=== PATIENT | female | born 1935 | race Caucasian/White ===

== ENCOUNTER 2023-09-24 08:36 | Observation (INO) | payer OTHER ==
[2023-09-24] MEDS ORDERED: KETOROLAC TROMETHAMINE 15 MG/ML VIAL IM ONE (11:00)
[2023-09-24] MEDS ORDERED: ACETAMINOPHEN 325 MG TABLET (FP) ONE (11:20)
[2023-09-24] MEDS ORDERED: KETOROLAC TROMETHAMINE 30 MG/1 ML VIAL ONE (11:20)
[2023-09-24] MEDS: ACETAMINOPHEN 500 MG TABLET (FP) PO ONE (11:27)
[2023-09-24] MEDS: KETOROLAC TROMETHAMINE 30 MG/1 ML VIAL IM ONE (11:28)
[2023-09-24] MEDS ORDERED: oxyCODONE HCL 10 MG SUSTAINED ACTING TABLET ONE (14:11)
[2023-09-24] MEDS ORDERED: oxyCODONE HCL 5 MG TABLET ONE (14:14)
[2023-09-24] MEDS: oxyCODONE HCL 5 MG TABLET PO ONE (14:17)
[2023-09-24 17:34] LABS: HEMATOCRIT 42.5 % (32.4-45.2); HEMOGLOBIN 13.3 GM/dL (10.7-15.3); MCH 26.8 pg (25.7-33.7); MCHC 31.4 g/dl (32.0-36.0); MEAN CELL VOLUME 85.4 fl (80-96); MEAN PLT VOLUME 7.4 fl (7.5-11.1); PLATELET COUNT 287 10^3/uL (134-434); RBC 4.98 M/mm3 (3.60-5.2); RDW 14.6 % (11.6-15.6); WHITE BLOOD COUNT 11.1 K/mm3 (4.0-10.0)
[2023-09-24 18:00] LABS: CHLORIDE 105 mmol/L (98-107); POTASSIUM 3.9 mmol/L (3.5-5.1); SODIUM 141 mmol/L (136-145)
[2023-09-24 18:01] LABS: CALCIUM 9.4 mg/dL (8.5-10.1)
[2023-09-24 18:03] LABS: ALBUMIN 3.5 g/dl (3.4-5.0); ANION GAP 9 mmol/L (4-13); BLOOD UREA NITROGEN 17.1 mg/dL (7-18); CO2 28 mmol/L (21-32); GLUCOSE,RANDOM 107 mg/dL (74-106)
[2023-09-24 18:06] LABS: CREATININE 0.7 mg/dL (0.55-1.3); SGOT/AST 26 U/L (15-37); SGPT/ALT 30 U/L (13-61)
[2023-09-24 18:07] LABS: BILIRUBIN,TOTAL 0.5 mg/dL (0.2-1); TOT PROT 7.5 g/dl (6.4-8.2)
[2023-09-24 18:09] LABS: ALK PHOS 100 U/L (45-117)
[2023-09-24] MEDS ORDERED: ACETAMINOPHEN 325 MG TABLET (FP) PO PRN (21:25)
[2023-09-24] MEDS ORDERED: KETOROLAC TROMETHAMINE 15 MG/ML VIAL IVPUSH PRN (21:25)
[2023-09-24] MEDS ORDERED: traMADol HCL 50 MG TABLET PO PRN (21:39)
[2023-09-25] MEDS: LIDOCAINE PATCH REMOVAL MC SCH (00:46)
[2023-09-25] MEDS ORDERED: ACETAMINOPHEN 325 MG TABLET (FP) ONE (00:48)
[2023-09-25] MEDS: ACETAMINOPHEN 500 MG TABLET (FP) PO SCH (00:51)
[2023-09-25 01:09] LABS: EPI CELLS 28 /uL (0-25.1); HYALINE CASTS 0 /uL (0-3.1); PH,URINE 6.5 (5.0-8.0); URINE APPEARANCE CLOUDY; URINE BACTERIA 2293 /uL (0-1359); URINE BILIRUBIN NEGATIVE (NEGATIVE); URINE COLOR YELLOW; URINE GLUCOSE (UA) NEGATIVE (NEGATIVE); URINE KETONE TRACE (NEGATIVE); URINE LEUK ESTERASE 2+ (NEGATIVE); URINE NITRITE NEGATIVE (NEGATIVE); URINE PROTEIN NEGATIVE (NEGATIVE); URINE RBC 32 /uL (0-23.9); URINE WBC 42 /uL (0-25.8)
[2023-09-25] MEDS: BUDESONIDE/FORMETEROL FUMARATE 160/4.5 mcg INHALER IH SCH (02:06)
[2023-09-25 05:37] VITALS: RESP 18; BMI 25.4
[2023-09-25] MEDS ORDERED: CEFUROXIME AXETIL 250 MG TABLET PO SCH (08:00)
[2023-09-25] MEDS: ENOXAPARIN NA (PORCINE) 40 MG/0.4 ML DISP.SYRIN SQ SCH (09:51)
[2023-09-25] MEDS: MONTELUKAST NA 10 MG TABLET PO SCH (09:51)
[2023-09-25] MEDS: LIDOCAINE 4% PATCH TP SCH ×2 (09:51→10:41)
[2023-09-25] MEDS: amLODIPine BESYLATE 5 MG TABLET (FP) PO SCH (09:51)
[2023-09-25] MEDS: ATORVASTATIN CA 20 MG TABLET (FP) PO SCH (09:52)
[2023-09-25] MEDS ORDERED: LIDOCAINE 4% PATCH TP SCH ×2 (10:00)
[2023-09-25 10:21] LABS: POTASSIUM 3.7 mmol/L (3.5-5.1)
[2023-09-25 10:27] LABS: BASO % 0.6 % (0-2.0); EOS % 1.3 % (0-4.5); HEMATOCRIT 40.6 % (32.4-45.2); HEMOGLOBIN 13.2 GM/dL (10.7-15.3); MCH 27.6 pg (25.7-33.7); MCHC 32.6 g/dl (32.0-36.0); MEAN CELL VOLUME 84.6 fl (80-96); MEAN PLT VOLUME 8.1 fl (7.5-11.1); MONO % 6.7 % (3.8-10.2); NEUT % 78.4 % (42.8-82.8); PLATELET COUNT 298 10^3/uL (134-434); RDW 14.6 % (11.6-15.6)
[2023-09-25 10:30] LABS: ALBUMIN 3.5 g/dl (3.4-5.0); BLOOD UREA NITROGEN 20.7 mg/dL (7-18); CALCIUM 9.3 mg/dL (8.5-10.1); MAGNESIUM 2.1 mg/dL (1.8-2.4)
[2023-09-25 10:31] LABS: CREATININE 0.6 mg/dL (0.55-1.3)
[2023-09-25 10:33] LABS: BILIRUBIN,TOTAL 0.8 mg/dL (0.2-1); PHOSPHOROUS 3.8 mg/dL (2.5-4.9); TOT PROT 7.4 g/dl (6.4-8.2)
[2023-09-25 11:14] LABS: ERYTHROCYTE SEDIMENTATION RATE 17 mm/hr (0-30)
[2023-09-26] MEDS ORDERED: ACETAMINOPHEN 500 MG TABLET (FP) PO PRN (06:59)
[2023-09-26 10:03] LABS: HEMATOCRIT 38.7 % (32.4-45.2); HEMOGLOBIN 12.4 GM/dL (10.7-15.3); MCH 27.5 pg (25.7-33.7); MCHC 32.1 g/dl (32.0-36.0); MEAN CELL VOLUME 85.6 fl (80-96); MEAN PLT VOLUME 7.8 fl (7.5-11.1); PLATELET COUNT 273 10^3/uL (134-434); RBC 4.52 M/mm3 (3.60-5.2); RDW 14.5 % (11.6-15.6); WHITE BLOOD COUNT 10.6 K/mm3 (4.0-10.0)
[2023-09-26 10:35] LABS: ALBUMIN 3.2 g/dl (3.4-5.0); BLOOD UREA NITROGEN 9.9 mg/dL (7-18)
[2023-09-26 10:39] LABS: CREATININE 0.6 mg/dL (0.55-1.3)
[2023-09-26 10:40] LABS: TOT PROT 6.9 g/dl (6.4-8.2)
[2023-09-26 10:41] LABS: BILIRUBIN,TOTAL 0.7 mg/dL (0.2-1)
[2023-09-27 09:58] LABS: HEMOGLOBIN 12.6 GM/dL (10.7-15.3); MCH 27.6 pg (25.7-33.7); MCHC 32.4 g/dl (32.0-36.0); MEAN CELL VOLUME 85.1 fl (80-96); MEAN PLT VOLUME 7.7 fl (7.5-11.1); PLATELET COUNT 287 10^3/uL (134-434); RBC 4.58 M/mm3 (3.60-5.2); RDW 13.9 % (11.6-15.6); WHITE BLOOD COUNT 10.4 K/mm3 (4.0-10.0)
[2023-09-27 10:15] LABS: POTASSIUM 3.7 mmol/L (3.5-5.1)
[2023-09-27 10:20] LABS: CALCIUM 9.2 mg/dL (8.5-10.1)
[2023-09-27 10:21] LABS: ALBUMIN 3.1 g/dl (3.4-5.0); BLOOD UREA NITROGEN 12.2 mg/dL (7-18)
[2023-09-27 10:24] LABS: BILIRUBIN,TOTAL 0.5 mg/dL (0.2-1); CREATININE 0.5 mg/dL (0.55-1.3)
[2023-09-27 12:49] VITALS: TEMP 98
[2023-09-27 15:25] VITALS: BP 149/76; PULSE 82
== END 2023-09-27 15:42 ==
LOC: JER 08:36 → JERBED 18:20 → J6S 09-25 05:00
PROVIDERS: ADMIT Internal Medicine; ATTEND Internal Medicine
PROC: 3E023GC Introduction of Other Therapeutic Substance into Muscle, Percutaneous Approach (ICD-10-PCS; principal; 2023-09-24)
DX: I10 Essential (primary) hypertension (principal); E78.5 Hyperlipidemia, unspecified; J45.909 Unspecified asthma, uncomplicated; M19.90 Unspecified osteoarthritis, unspecified site; D72.829 Elevated white blood cell count, unspecified; Z29.89 Encounter for other specified prophylactic measures; R26.2 Difficulty in walking, not elsewhere classified
CPT/HCPCS: 36415; 71045-TC-FY; 72100-TC-FY; 72131-TC; 72170-TC-FY; 73502-TC-RT-FY; 73562-TC-LT-FY; 73562-TC-RT-FY; 80053; 81003; 83735; 84100; 85025; 85027; 85651; 86140; 87086; 93005; 93010; 96372; 97116-GP; 97162-GP; 99285-25; G0378